=== PATIENT | female | born 2000 | race Hispanic/Latino ===

== ENCOUNTER 2020-09-04 10:29 | Outpatient (CLI) | payer MEDICAID, SELFPAY ==
--- NOTE | ~2020-09-04 | US_ITS ---
EXAMINATION: US OB follow up DATE: 09/04/2020 11:07 INDICATION: Routine care at the transition from second to third trimester of . TECHNIQUE: Real-time ultrasound of the pelvis was performed. The interpreting radiologist was not pre sent for the study. COMPARISON: None. FINDINGS: There is a single living fetus in vertex presentation. The placenta is anterior. heart rate is 150 beats per minute (bpm). The amniotic fluid index is 12.7 cm, which is normal (5th%-95%: 9.7-22. 3 cm at 26 weeks estimated gestational age). The following biometric data were obtained: BPD: 6.2 cm -> 25 weeks 1 days Head circumference: 24.0 cm -> 26 weeks 0 days Abdominal circumference: 21.2 cm -> 25 weeks 5 days Femur length: 4.6 cm -> 25 weeks 1 days These measurements are concordant. Head circumference to abdominal circumference ratio: 1.13 (normal range 1.04-1.22). Estimated weight: 818 g (+/-) 123 g. or 1 lbs. 13 oz. (+/-) 4 oz. IMPRESSION: 1. Single living fetus in vertex presentation with heart rate of 150 bpm. 2. Gestational age by ultrasound of 25 weeks 4 day(s) +/- 1 week(s) 5 day(s) with ultrasound estimate d date of delivery (PEDRO) of 12/14/2020. Estimated weight is 8th percentile by Hadlock criteria w hen 12/07/2020 is used as the PEDRO. Please correlate with clinical information or earlier ultrasounds fo r most accurate PEDRO. 3. Normal amniotic fluid index of 12.7 cm. Reviewed, dictated and finalized at location A. [employer] MECHANIC IMPRESSION: 1. Single living fetus in vertex presentation with heart rate of 150 bpm. 2. Gestational age by ultrasound of 25 weeks 4 day(s) +/- 1 week(s) 5 day(s) wi th ultrasound estimated date of delivery (PEDRO) of 12/14/2020. Estimated we ight is 8th percentile by Hadlock criteria when 12/07/2020 is used as the PEDRO. Pl ease correlate with clinical information or earlier ultrasounds for most accura te PEDRO. 3. Normal amniotic fluid index of 12.7 cm.
== END 2020-09-04 10:30 | disposition home or self-care (01) ==
PROVIDERS: Visit Provider Physician Assistant
DX: Z34.92 Encounter for supervision of normal pregnancy, unspecified, second trimester (principal); Z3A.25 25 weeks gestation of pregnancy
CPT/HCPCS: 76816

== ENCOUNTER 2020-11-19 16:19 | Outpatient (CLI) | payer OTHER, SELFPAY ==
--- NOTE | ~2020-11-19 | US_ITS ---
EXAMINATION: US OB follow up DATE: 11/19/2020 17:16 INDICATION: Supervision of normal third trimester TECHNIQUE: Real-time ultrasound of the pelvis was performed. The interpreting radiologist was not pre sent for the study. COMPARISON: None. FINDINGS: There is a single living fetus in vertex presentation. The placenta is anterior. card iac activity and movement are noted. heart rate is 123 beats per minute (bpm). The amniot ic fluid index is subjectively normal. The following biometric data were obtained: Biparietal diameter (BPD): 8.7 cm; head circumference (HC): 33.0 cm; abdominal circumference (AC): 31 .7 cm; femur length (FL): 7.3 cm. These measurements are concordant. Estimated weight is 2891 g +/- 433 g, which correlates with the 28th percentile when 12/07/2020 i s used as estimated date of delivery. As single measurements, these parameters are each equal to the following estimated gestational ages w ith ranges of +/- 2 standard deviations: BPD: 35 weeks 1 days +/- 3 weeks 1 days. HC: 37 weeks 5 days +/- 2 weeks 5 days. AC: 35 weeks 4 days +/- 3 weeks 0 days. FL: 37 weeks 3 days +/- 3 weeks 1 days. estimated gestational age based solely on measurements from this exam is 36 weeks 3 days +/- 2 weeks 4 days. IMPRESSION: 1. Single living fetus in vertex presentation. 2. Estimated weight is 2891 g +/- 433 g, which correlates with the 28th percentile when is used as estimated date of delivery. Reviewed, dictated and finalized at location A. NT SERVICES ASSISTANT IMPRESSION: 1. Single living fetus in vertex presentation. 2. Estimated weight is 2891 g +/- 433 g, which correlates with the 28th p ercentile when 12/07/2020 is used as estimated date of delivery.
== END 2020-11-19 16:20 | disposition home or self-care (01) ==
LOC: ANHIMG 16:22
PROVIDERS: Visit Provider Physician Assistant
DX: Z34.93 Encounter for supervision of normal pregnancy, unspecified, third trimester (principal)
CPT/HCPCS: 76816

== ENCOUNTER 2020-11-21 15:29 | Outpatient (CLI) | payer OTHER, SELFPAY ==
--- NOTE | 2020-11-21 17:07 | PC.NURSE ---
Pt presents to L&D thinking her water had broke at 0600 this morning. NST reactive. SVE unchanged at 1.5-2 cm since last exam in Dr. Alanis's office on 11/20/20. Pt denies pain and bleeding. ROM plus is negative.
== END 2020-11-21 15:30 | disposition home or self-care (01) ==
PROVIDERS: PCP Obstetrics & Gynecology; Visit Provider Obstetrics & Gynecology
DX: O41.8X90 Other specified disorders of amniotic fluid and membranes, unspecified trimester, not applicable or unspecified (principal); Z3A.00 Weeks of gestation of pregnancy not specified
CPT/HCPCS: 84112

== ENCOUNTER 2020-11-30 03:40 | Observation (INO) | payer OTHER, SELFPAY ==
[2020-11-30] VITALS (7 sets, daily range): BP systolic 108–116; BP diastolic 61–76; PULSE 81–93; BMI 21.2
--- NOTE | 2020-11-30 03:40 | OBADM ---
This patient, Donna Jaime, admitted to the OB room Labor/Delivery/Recovery 106 for observation. Patient/family oriented to hospital policies and general routines including ID bracelet, bed and alarms, visiting hours, pain management, procedures, bathroom and other care routines, personal items, smoking policy, room service/diet, and visiting hours. Patient/Family are encouraged to report perceived risks to care and to ask questions if they do not understand what they are told or what they should do.
--- NOTE | 2020-11-30 03:45 | PC.NURSE ---
Pt states she has been having contractions for past hour. Rates as 8 on pain scale. Pt speaks Mauritanian as primary language however states she she understands and speaks Mozambican too and will help if she does not understand. Declines medical interpreter.
--- NOTE | 2020-11-30 06:20 | PC.NURSE ---
Addendum entered by Aaron Shields RN 11/30/20 06:24: TIME NOTE 0521 Original Note: Contacted Dr. Barbosa with SVE and pt sleeping since shortly after arrival. Will discharge home. Order received. Pt had variable decel at conversation with Dr. Barbosa. Will observe for reactive tracing prior to discharge. .
--- NOTE | 2020-12-01 09:51 | PM.OBTRLD ---
OB - Triage/Final Diagnosis Visit Information Comments/Additional reasons for admission: I have assessed the risk for this patient, Donna Jaime, and determined that she would benefit from observation care. Final Diagnosis (1) False labor: Code(s): O47.9 - False labor, unspecified Status: Acute
--- NOTE | 2020-12-05 03:59 | PM.IMHP ---
H&P: HPI History of Present Illness Date/Time: 12/05/20 03:59 Chief Complaint: elective induction of labor in Term Narrative: Donna Jaime is a 20 year old female primigravida presenting for IOL at 39w5d gestation. 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 +FM. Is following with MFM for SGA fetus. she understands her condition procedure and risks involved she understands the maternal and indications for delivery with risk involved including but not limited to bleeding infection injury to bladder bowel baby pelvic vessels DVT pneumonia wound infection endometrioid is UTI the risk of anesthesia and she agrees to proceed. GBS positive antibiotics will be given Pitocin method of induction. Plans on using an epidural, having a girl named Aennhoa and bottle /breast-feeding. Review of Systems Review of Systems: All systems reviewed & are unremarkable except as noted in HPI and below Constitutional: Constitutional: Reports no additional constitutional complaints Eyes: Eyes: Reports no additional eye complaints ENT: Reports system reviewed and no additional complaints, except as documented Cardiovascular: Cardiovascular: Reports no additional cardiovascular complaints Respiratory: Respiratory: Reports no additional respiratory complaints Gastrointestinal: Gastrointestinal: Reports no additional gastrointestinal complaints Genitourinary: Genitourinary: Reports no additional female genitourinary complaints Musculoskeletal: Musculoskeletal: Reports no additional musculoskeletal complaints Integumentary/Breasts: Skin/Breast: Reports system reviewed and no additional complaints, except as docu Neurologic: Reports system reviewed and no additional complaints, except as documented Psychiatric: Psychiatric: Reports no additional psychiatric complaints Endocrine: Endocrine: Reports no additional endocrine complaints Allergic/Immunologic: Allergic/Immunologic: Reports no additional allergic/immunologic complaints [facility] Past Medical History Medical History (Updated 12/05/20 @ 04:18 by David Alanis MD) Anemia affecting Bacterial vaginosis GBS carrier 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 Maternal varicella, non-immune SGA (small for gestational age), , affecting care of mother, antepartum Subclinical hypothyroidism Term Family History Family History Grandparent Diabetes mellitus Social History Social History (Updated 12/05/20 @ 04:12 by David Alanis MD) Smoking status: Never smoker Alcohol intake: never Substance use: never Substance use type: does not use Living arrangements: with family Occupation/Education: unemployed Gender identity (if verbalized by the patient): Female Sexual Orientation (if Verbalized by the Patient): Straight or Heterosexual Spiritual care concerns: No Agree to blood products: Yes Meds Home Medications and Allergies Home Medications Medication Instructions Recorded Confirmed Type prenat.vits,kvng,uiu-rtsi-hudui 1 tablet PO DAILY 11/12/20 11/30/20 History levothyroxine 50 mcg PO DAILY 11/30/20 11/30/20 History Allergies Allergy/AdvReac Type Severity Reaction Status Date / Time No Known Allergies Allergy Verified 11/21/20 17:04 Exam Const: General: cooperative, healthy appearing, comfortable, no acute distress, well developed, alert, awake and Physically active Nutritional Appearance: average body habitus and well nourished Orientation/consciousness: patient oriented x3 Limitations: no limitations HENMT: Head: normal to inspection Ears: hearing grossly normal bilaterally General nose exam: Normal external nose present Face and sinus: normal facial exam Mouth: Yes Normal oral and palatal mucosa present and Yes moist mucous membranes Teeth and gingiva: dentition normal Throat: p
--- NOTE | 2020-12-05 04:04 | P.HP_ITS ---
Obstetrics - Admit Note Admission Note: record reviewed. No pertinent additions to the history and/or any subsequent changes in the physical findings that are not consistent with the expected course of the were found. Additions to the history and/or subsequent changes in the physical findings follow. None. Donna Jaime is a 20 year old female primigravida presenting for IOL at 39w5d gestation. 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 +FM. Is following with [facility] for SGA fetus. she understands her condition procedure and risks involved she understands the maternal and indications for delivery with risk involved including but not limited to bleeding infection injury to bladder bowel baby pelvic vessels DVT pneumonia wound infection endometrioid is UTI the risk of anesthesia and she agrees to proceed. GBS positive antibiotics will be given Pitocin method of induction. Plans on using an epidural, having a girl named Vira and bottle /breast-feeding.
--- NOTE | 2020-12-05 04:04 | WPDHPUPDATE1 ---
History and Physical Update Update Date/Time: 12/05/20 04:04 History and Physical has been reviewed, including an updated exam of the patient. There are NO changes in the patient's condition. Risks, benefits, and alternatives have been discussed and questions answered. Patient agrees to proceed with procedure. Donna Jaime is a 20 year old female primigravida presenting for IOL at 39w5d gestation. 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 +FM. Is following with M for SGA fetus. she understands her condition procedure and risks involved she understands the maternal and indications for delivery with risk involved including but not limited to bleeding infection injury to bladder bowel baby pelvic vessels DVT pneumonia wound infection endometrioid is UTI the risk of anesthesia and she agrees to proceed. GBS positive antibiotics will be given Pitocin method of induction. Plans on using an epidural, having a girl named Vira and bottle /breast-feeding.
== END 2020-11-30 07:12 | disposition home or self-care (01) ==
PROVIDERS: Admitting Provider Obstetrics & Gynecology; Visit Provider Obstetrics & Gynecology
DX: O47.03 False labor before 37 completed weeks of gestation, third trimester (principal); Z3A.39 39 weeks gestation of pregnancy
CPT/HCPCS: G0378; G0379

== ENCOUNTER 2020-12-05 07:11 | Inpatient (IN) | payer OTHER, SELFPAY ==
[2020-12-05] VITALS (194 sets, daily range): BP systolic 70–135; BP diastolic 42–104; PULSE 69–149; RESP 16; TEMP 36.5–36.9; O2SAT 94–100; BMI 25.2
--- NOTE | 2020-12-05 07:11 | LDADM ---
This patient, Donna Jaime, was admitted to Labor/Delivery/Recovery 104 on 12/05/20 at 07:11. Plans for labor, pain management and were discussed with patient. Patient/family oriented to hospital policies and general routines including ID bracelet, bed and alarms, visiting hours, pain management, procedures, bathroom and other care routines, personal items, smoking policy, room service/diet and guest tray routines, security routines, and visiting hours. Patient/Family are encouraged to report perceived risks to care and to ask questions if they do not understand what they are told or what they should do. See OBIX for further documentation.
[2020-12-05 07:57] LABS: Basophils Percent Auto 0.3 % (0.2-1.2); Eosinophils Percent Auto 0.4 % (0-4.4); Hematocrit 33.1 % (37.0-47.0); Hemoglobin 10.9 g/dL (12.0-15.0); Immature Granulocyte Absolute 0.04 K/mm3 (0.00-0.031); Immature Granulocyte Percent A 0.4 % (0-0.5); Lymphocytes Absolute Auto 3.25 K/mm3 (0.9-3.2); Lymphocytes Percent Auto 33.5 % (18.3-44.2); Mean Corpuscular HGB Conc 32.9 g/dl (32-36); Mean Corpuscular Hemoglobin 27.2 pg (26-34); Mean Corpuscular Volume 82.5 fl (80-100); Mean Platelet Volume 10.2 fl (7.4-10.4); Monocytes Absolute Auto 0.7 K/mm3 (0.1-0.6); Monocytes Percent Auto 6.7 % (2.6-8.5); Neutrophils Absolute Auto 5.7 K/mm3 (1.3-6.7); Neutrophils Percent Auto 58.7 % (45.5-73.1); Platelet Count Result 395 k/mm3 (150-375); Red Blood Count 4.01 M/mm3 (4.2-5.4); Red Cell Distribution Width 14.7 % (11.5-14.5); White Blood Count 9.7 K/mm3 (4.5-10.0)
[2020-12-05] MEDS: AMPICILLIN 2 GM/NS 100 ML 2 GM/100 ML BAG IVPB (08:03)
[2020-12-05] MEDS: LACTATED RINGERS 1,000 ML 125 ML IV CONT ×4 (08:04→16:36)
[2020-12-05] MEDS: OXYTOCIN 30 UNITS/NS 500 ML 30 UNITS/500 ML BAG IV CONT (08:04)
[2020-12-05 08:14] LABS: Amphetamine Screen Urine Negative (Negative); Barbiturate Screen Urine Negative (Negative); Benzodiazepines Screen Urine Negative (Negative); Cannabinoid Screen Urine Negative (Negative); Cocaine Screen Urine Negative (Negative); Methadone Screen Urine Negative (Negative); Opiate Screen Urine Negative (Negative); Phencyclidine Screen Urine Negative (Negative)
[2020-12-05] MEDS: AMPICILLIN 1 GM/NS 50 ML 1 GM/50 ML BAG IVPB ×2 (12:57→16:36)
[2020-12-05] MEDS: SODIUM CHLORIDE 0.9% IV 300 ML 600 ML I-UTERINE (12:59)
--- NOTE | 2020-12-05 14:48 | PM.OBPNLAB ---
Pain Control Date/time seen: 12/05/20 14:48 Pain control: tolerating well and epidural Comments: arom 1018 Pelvic Exam Dilation (cm): 4 Effacement (%): 100 station: -2 Amniotic membrane status: Ruptured Contractions Monitor mode: External Contraction frequency: 4 Contraction duration: 30 Contraction pattern: Regular Contraction phase: Contraction Status status: Category l Assessment and Plan Pitocin rate (mU/min): 2 Assessment: active labor and induction ongoing Plan: continuous present management
--- NOTE | 2020-12-05 19:14 | PM.OBPRVD ---
OB - Delivery Note Procedure Delivery date: 12/05/20 Procedure: Normal spontaneous vertex vaginal delivery a viable female infant and placenta Repair of first-degree perineal laceration Induction method: per pitocin protocol Delivery monitor: external FHT and internal uterine Route of delivery: Episiotomy description: None Laceration Description: Perineal - 1st Degree Delivery repair: vicryl (2-0) Anesthesia type: Epidural Disposition: floor Complications: None Narrative: Patient pushed in the 2nd stage of labor under epidural anesthesia resulting in a normal spontaneous vertex vaginal delivery a viable female infant over intact perineum anterior should shoulder delivered without difficulty 's posterior shoulder delivered and the infant was placed on the maternal abdomen cord was clamped and cut the nose and throat were bulb suction with spontaneous respirations and cry no gross abnormalities on the exam. Placenta cord gases and cord blood was then obtained and the placenta was delivered intact with a three-vessel cord and sent to pathology. The uterus contracted well with Pitocin given intravenously the cervix and rectum were checked there was no sponges left in the vagina no fistula sphincters intact the first-degree perineal laceration was repaired with 2 0 Vicryl suture in a running fashion hemostasis excellent mom and baby in stable condition in birthing [address] Baby Date of : 12/05/20 Time of : 18:55 Weeks of gestation at delivery: 40 gender: Female Weight (pounds): 6 Weight (ounces): 1 presentation: vertex position: Left Occiput Anterior Placenta delivery description: Spontaneous and Normal Configuration cord vessel description: 3 Vessels score one minute: 8 score five minutes: 9 Narrative: Normal spontaneous respiration with bulb suction normal transition with stimulation no gross abnormalities on the exam taken to the nursery in stable condition
[2020-12-05] MEDS: OXYTOCIN 30 UNITS/NS 500 ML 30 UNITS/500 ML BAG 125 UNITS IV CONT (19:39)
[2020-12-05] MEDS: WITCH HAZEL 40 PADS 1 PAD TOPICAL (21:40)
[2020-12-05] MEDS: BENZOCAINE 20% AER SPR (*SP) 56 GM CAN 1 SPRAY TOPICAL (21:40)
[2020-12-06] MEDS: IBUPROFEN 600 MG TABLET PO ×2 (05:30→19:29)
[2020-12-06 05:52] LABS: Hematocrit 28.7 % (37.0-47.0); Hemoglobin 9.1 g/dL (12.0-15.0)
[2020-12-06] MEDS: DOCUSATE SODIUM 100 MG CAPSULE PO ×2 (07:11→19:28)
[2020-12-06] MEDS: LEVOTHYROXINE SODIUM 75 MCG TABLET PO (07:11)
[2020-12-06] MEDS: MULTIVIT/MIN/PREN/FOL AC/IRON TABLET 1 TAB PO (07:11)
[2020-12-06] MEDS: POLYSACCHARIDE IRON COMPLEX 150 MG CAPSULE PO ×2 (07:11→19:27)
[2020-12-06 07:15] VITALS: BP 115/77; PULSE 105; RESP 16; TEMP 36.9
--- NOTE | 2020-12-06 08:40 | WPDANLDPN2 ---
Anes-Prog Note L&D Date/Time: 12/06/20 08:40 Comfortable throughout: labor Neuraxial method: epidural Epidural/Spinal procedure site: clean & non-tender Neuro status: Neuro function grossly intact. Cardiovascular status: normal Respiratory status: normal Airway patency: baseline Mental status: baseline Post-Op hydration status: normal Vital Signs: Last Vital Signs Temp 36.9 C 12/05/20 22:00 Pulse 108 H 12/05/20 22:00 Resp 16 12/05/20 22:00 BP 123/75 12/05/20 22:00 Pulse Ox 100 12/05/20 19:08 Pain score (VAS): no complaints I/O: Intake & Output 12/05/20 12/06/20 12/06/20 23:59 07:59 15:59 Intake Total 1150 Output Total 541 Balance 609 Post-procedural complaints: none Patient feedback: Patient satisfied with anesthetic care.
--- NOTE | 2020-12-06 12:08 | PM.OBPNVD ---
OB - PN: Subj Subjective Date/time seen: 12/06/20 12:08 Patient comments: no complaints, pain well controlled, tolerating diet and flatus present [place] baby status: doing well [place] feeding status: exclusively breast feeding OB - PN: Obj Data Labs CBC & Chem 7: 12/06/20 05:21 Labs: Laboratory Results - last 24 hr 12/06/20 05:21 Hgb 9.1 L Hct 28.7 L OB - PN A/P Plan day: 1 Plan: routine care, discharge home and follow up 6 weeks Time Spent With Patient Time: Total time spent is greater than 50% in coordination of care (as documented) at patient's floor/unit and/or counseling patient: Time with patient: less than 15 minutes Review of Systems Review of Systems: All systems reviewed & are unremarkable except as noted in HPI and below Exam Const: General: cooperative, healthy appearing, comfortable, no acute distress, well developed, alert, awake and Physically active Nutritional Appearance: average body habitus Orientation/consciousness: patient oriented x3 Limitations: no limitations HENMT: Head: normal to inspection Eyes: General: appearance normal, both eyes and all related structures Neck: Neck: normal visual inspection and full ROM Chest: Chest palpation & inspection: normal inspection of the chest Resp: Effort & Inspection: normal respiratory effort Cardio: Rate: regular rate Rhythm: regular rhythm GI: Inspection: normal to inspection : External Female Exam: normal external appearance Back/Spine/Pelvis: Back: no CVA tenderness Skin: General skin exam: normal color Neuro: General: patient oriented x3, gait normal, tone normal and moves all extremities Extrem: General: normal to inspection, full ROM and no calf tenderness Psych: Appearance: grossly normal Mental Status: mental status grossly normal Speech and movement: Normal speech and movement present Affect: normal affect Attitude: cooperative
[2020-12-06 22:18] VITALS: BP 119/77; RESP 16; TEMP 36.6; O2SAT 100
--- NOTE | 2020-12-06 22:29 | PC.NURSE ---
12/06/2020 at 2100. Patient viewed the filipino version of the discharge video Mother & Baby Care, The First Two Weeks . Patient was given the opportunity and encouraged to ask questions. Patient verbalized understanding of information shared and has been given the mother/baby guide for home reference.
[2020-12-07 06:40] VITALS: BP 120/73; PULSE 78; RESP 18; TEMP 36.3
[2020-12-07] MEDS: DOCUSATE SODIUM 100 MG CAPSULE PO (08:50)
[2020-12-07] MEDS: IBUPROFEN 600 MG TABLET PO (08:50)
[2020-12-07] MEDS: POLYSACCHARIDE IRON COMPLEX 150 MG CAPSULE PO (08:50)
[2020-12-07] MEDS: LANOLIN (LANSINOH) 7.5 GM CREAM 1 APPLIC TOPICAL (08:50)
[2020-12-07] MEDS: MULTIVIT/MIN/PREN/FOL AC/IRON TABLET 1 TAB PO (08:50)
[2020-12-07] MEDS: TETANUS,DIPHTHERIA,AC PERTUSSIS ADULT (0.5 ML) BOOSTRIX IM (08:50)
[2020-12-08 09:11] LABS: Rapid Plasma Reagin Non-Reactive (NonReactive)
[2020-12-09 11:47] VITALS: BP 114/72; PULSE 88; RESP 16; TEMP 36.8; O2SAT 100
--- NOTE | 2020-12-13 08:36 | PM.OBDSVD ---
DS: Admitting Diagnosis Admitting Diagnosis Admitting Diagnosis: Term Elective induction of labor SGA MTHFR SGA GBS carrier Subclinical hypothyroidism Anemia Varicella nonimmune DS: Discharge Diagnosis Discharge Diagnosis (1) Term delivered: Code(s): O80 - Encounter for full-term uncomplicated delivery Status: Acute (2) Encounter for elective induction of labor: Code(s): Z34.90 - Encounter for supervision of normal , unspecified, unspecified trimester Status: Acute (3) Anemia affecting : Code(s): O99.019 - Anemia complicating , unspecified trimester Status: Acute (4) Maternal varicella, non-immune: Code(s): O09.899 - Supervision of other high risk pregnancies, unspecified trimester; Z28.3 - Underimmunization status Status: Acute (5) Subclinical hypothyroidism: Code(s): E03.9 - Hypothyroidism, unspecified Status: Acute (6) GBS carrier: Code(s): Z22.330 - Carrier of Group B streptococcus Status: Acute (7) SGA (small for gestational age), , affecting care of mother, antepartum: Code(s): O36.5990 - Maternal care for other known or suspected poor growth, unspecified trimester, not applicable or unspecified Status: Acute (8) Heterozygous MTHFR mutation [id number]: Code(s): E72.12 - Methylenetetrahydrofolate reductase deficiency Status: Acute OB - DS: Summary Hospital Course Time spent discussing smoking cessation with patient: 3 to 10 minutes OB Procedures : Ultrasound OB Procedures Intrapartum: Spontaneous Vag Delivery and GBS prophylaxis OB Procedures: : None Peripartum Data Infant Delivery Method: Natural Vaginal Laceration Description: Perineal - 1st Degree complications: none 1: Gender: Female Disposition of : home Status at Discharge Functional status at discharge: independent ambulation Overall status at discharge: patient is back to baseline Time Spent with Patient Time attestation: Total time spent providing and/or coordinating discharge services: Time spent: Less than 30 minutes Exam Const: General: cooperative, healthy appearing, comfortable, no acute distress, well developed, alert, awake and Physically active Nutritional Appearance: average body habitus Orientation/consciousness: patient oriented x3 Limitations: no limitations HENMT: Head: normal to inspection Eyes: General: appearance normal, both eyes and all related structures Neck: Neck: normal visual inspection Chest: Chest palpation & inspection: normal inspection of the chest Resp: Effort & Inspection: normal respiratory effort Cardio: Rate: regular rate Rhythm: regular rhythm GI: Inspection: normal to inspection : External Female Exam: normal external appearance Back/Spine/Pelvis: Back: no CVA tenderness Skin: General skin exam: normal color Neuro: General: patient oriented x3, gait normal, tone normal, moves all extremities and Normal light touch and pain sensation Extrem: General: normal to inspection, full ROM and no calf tenderness Psych: Appearance: grossly normal Mental Status: mental status grossly normal Speech and movement: Normal speech and movement present Affect: normal affect Attitude: cooperative Thought process: Normal thought process present Thought content: Yes Normal thought content present Insight: Good insight present (Psych) Judgement: Good judgement present (Psych) DS: Data Data Completed and Pending Completed studies during hospitalization: Pending at discharge 12/05/20 18:57 Surgical [PTH] Routine Discharge Plan Discharge Attending physician on discharge: David Alanis Discharging Clinician: David Alanis Anticipated Discharge Date/Time: 12/07/20 12:10 Patient Disposition: Home, Self-Care Activity: may shower, no straining, no driving and may drive af
== END 2020-12-07 10:25 | disposition home or self-care (01) | DRG 560 ==
LOC: ANHLDR 07:17 → ANHOB2 21:55
PROVIDERS: Admitting Provider Obstetrics & Gynecology; Visit Provider Obstetrics & Gynecology
DX: O99.824 Streptococcus B carrier state complicating childbirth (principal); Z37.0 Single live birth; Z3A.40 40 weeks gestation of pregnancy; Z23 Encounter for immunization; O70.0 First degree perineal laceration during delivery; O36.8330 Maternal care for abnormalities of the fetal heart rate or rhythm, third trimester, not applicable or unspecified
CPT/HCPCS: 36415; 80307; 85014; 85018; 85025; 86592; 86850; 86900; 86901; 88307; 90471; 90653; 90715; A9270; G0008; J0290; J2590; J2795; J7030; J7120

== ENCOUNTER 2021-05-07 10:21 | Outpatient (CLI) | payer OTHER, SELFPAY ==
--- NOTE | ~2021-05-07 | US_ITS ---
EXAMINATION: US OB <= 14 weeks fetus EXAM DATE: 05/07/2021 11:00 INDICATION: Encounter for supervision of normal . 1st trimester. TECHNIQUE: Pelvic obstetrical transabdominal sonogram was performed by a technologist. There are mu ltiple grayscale and Doppler images available for interpretation. FINDINGS: Uterus measures 12.7 x 8.9 x 7.0 cm. There is intrauterine gestation sac. pole with heart rate confirmed at 157 beats per minute. The 5.5 cm crown-rump length corresponds to estimated gestational age by ultrasound of 12 weeks 1 day, estimated date of confinement 11/18/2021. Yolk sac is identified. There is no sonographic evidence of subchorionic/retroplacental hemorrhage. Placenta is posteriorly located. Ovaries were not identified. IMPRESSION: Early live intrauterine gestation, age by ultrasound of 12 weeks 1 day. Reviewed, dictated and finalized at location B.
== END 2021-05-07 10:22 | disposition home or self-care (01) ==
PROVIDERS: PCP Physician Assistant; Visit Provider Physician Assistant
DX: Z36.89 Encounter for other specified antenatal screening (principal); Z3A.12 12 weeks gestation of pregnancy
CPT/HCPCS: 76801

== ENCOUNTER 2021-06-05 20:48 | Emergency (ER) | payer OTHER, SELFPAY ==
[2021-06-05 20:51] VITALS: BP 127/72; PULSE 100; RESP 16; TEMP 36.6; O2SAT 100
--- NOTE | 2021-06-05 21:13 | ED.URI ---
HPI - URI/Sore Throat General Chief Complaint: Upper Respiratory Infection Stated Complaint: vomiting, 16 weeks pg Time Seen by Provider: 06/05/21 21:12 History of Present Illness HPI Narrative: 21 yo female at 16 weeks gestation presents to the ED c/o fever. She reports subjective fever at home. No measured fever. This is assisted with fatigue, aches, nasal congestion. No cough, SOB, sore throat, dysuria, hematuria, vaginal bleeding, discharge, abdominal pain. No sick contacts. She has not had the COVID-19 vaccination. 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 Maternal varicella, non-immune SGA (small for gestational age), , affecting care of mother, antepartum Subclinical hypothyroidism Term Family History Family History Grandparent Diabetes mellitus Social History Social History Smoking status: Never smoker Alcohol intake: never Substance use: never Substance use type: does not use Gender identity (if verbalized by the patient): Female Spiritual care concerns: No Agree to blood products: Yes Exam Const: General: healthy appearing, no acute distress and alert Orientation/consciousness: patient oriented x3 HENMT: Head: normal to inspection Throat: posterior oropharynx normal Neck: Neck: normal visual inspection and no lymphadenopathy Resp: Effort & Inspection: normal respiratory effort Auscultation: clear to auscultation bilaterally, no rales, no rhonchi and no wheezes Cardio: Jugular venous distension: no JVD Rate: regular rate Rhythm: regular rhythm Heart sounds: no murmurs GI: Inspection: non-distended GI Palp: Yes Soft to palpation and No Tenderness to palpation present (GI) Skin: General skin exam: normal color Neuro: General: patient oriented x3 and moves all extremities Speech: normal speech Extrem: General: normal to inspection and no edema Psych: Appearance: well kempt Affect: normal affect Course Vital Signs Vital signs: Vital Signs Temperature 36.6 C 06/05/21 20:51 Pulse Rate 100 06/05/21 20:51 Respiratory Rate 16 06/05/21 20:51 Blood Pressure 127/72 06/05/21 20:51 Pulse Oximetry 100 06/05/21 20:51 Temperature 37.2 C 06/05/21 22:56 Pulse Rate 94 06/05/21 22:56 Respiratory Rate 20 06/05/21 22:56 Blood Pressure 122/89 06/05/21 22:56 Pulse Oximetry 96 06/05/21 22:56 Procedures Other Procedure Procedure 1: Other Procedure: Bedside US Grossly normal 16 week IUP reassuring movement FHR 166 MDM - URI/Sore Throat MDM Narrative Medical decision making narrative: minimal symptoms. Afebrile here with no confirmed fever at home. US reassuring. will send covid test Medical Records Attestation: I reviewed the patient's medical records. Lab Data Labs: Lab Results 06/05/21 Range/Units 22:13 SARS-CoV-2 RNA (RT-PCR) Pending Discharge Plan Discharge Clinical Impression: Upper respiratory infection, Suspected COVID-19 virus infection Patient Disposition: Home, Self-Care Condition: Stable Instructions: COVID-19 (Coronavirus Disease 2019) (ED) Prescriptions: New acetaminophen 500 mg capsule 1,000 mg PO TID PRN (Reason: fever or pain) Qty: 60 RF: 0 No Action prenat.vits,
[2021-06-05 22:56] VITALS: BP 122/89; PULSE 94; RESP 20; TEMP 37.2; O2SAT 96
[2021-06-06 21:30] LABS: SARS-CoV-2 RNA PCR Positive
== END 2021-06-05 22:57 | disposition home or self-care (01) ==
PROVIDERS: Emergency Provider Emergency Medicine; PCP Physician Assistant
DX: O98.512 Other viral diseases complicating pregnancy, second trimester (principal); U07.1 COVID-19; J06.9 Acute upper respiratory infection, unspecified; Z3A.16 16 weeks gestation of pregnancy; O99.282 Endocrine, nutritional and metabolic diseases complicating pregnancy, second trimester; E03.9 Hypothyroidism, unspecified; E72.12 Methylenetetrahydrofolate reductase deficiency
CPT/HCPCS: 99283; C9803; U0003; U0005

== ENCOUNTER 2021-07-15 10:35 | Outpatient (CLI) | payer OTHER, SELFPAY ==
--- NOTE | ~2021-07-15 | US_ITS ---
US breast BI limited 07/15/2021 11:46 Indication: Palpable bilateral breast lumps Procedure: High-resolution Limited ultrasound of the breasts in the areas of palpable concern. Comparison: No prior studies for comparison. Findings: Right breast: At 11:00, 5 cm from the nipple, there is an oval circumscribed hypoechoic mas s measuring 2.3 x 2.2 x 1.8 cm. There are some lobulated margins.. There is internal vascularity. The re is increased through transmission. Left breast ultrasound: At 6:00, 2 cm from the nipple, there is an oval hypoechoic mass measuring 13 x 11 x 7 mm with heterogeneous internal echotexture. There is posterior acoustic enhancement. No inte rnal vascularity. Impression: 1: Probable benign bilateral breast masses. BI-RADS CATEGORY 3-PROBABLY BENIGN FINDING RECOMMENDATION: Six-month follow-up bilateral breast ultrasound recommended. Reviewed, dictated and finalized at location A. Impression: 1: Probable benign bilateral breast masses. BI-RADS CATEGORY 3-PROBABLY BENIGN FINDING RECOMMENDATION: Six-month follow-up bilateral breast ultrasound recommended.
--- NOTE | ~2021-07-15 | US_ITS ---
EXAMINATION: US OB /maternal detail DATE: 07/15/2021 11:50 INDICATION: Second trimester survey TECHNIQUE: Real-time ultrasound of the pelvis was performed. COMPARISON: None. FINDINGS: There is a single living fetus in vertex presentation. The placenta is posterior. heart rate is 155 beats per minute (bpm). cardiac activity and movement are noted. The amniotic fluid index is subjectively normal. The following anatomy was identified as normal: 4 chamber heart 3 vessel cord cord insertion kidneys urinary bladder stomach spine diaphragm ventricles cisterna magna cerebellum The following biometric data were obtained: Biparietal diameter (BPD): 5.0 cm; head circumference (HC): 18.3 cm; abdominal circumference (AC): 15 .2 cm; femur length (FL): 3.3 cm. These measurements are concordant. Estimated weight is 360 g +/- 54 g, which correlates with the <3rd percentile when 11/18/2021 is used as estimated date of delivery. As single measurements, these parameters are each equal to the following estimated gestational ages w ith ranges of +/- 2 standard deviations: BPD: 21 weeks 1 days +/- 1 weeks 5 days. HC: 20 weeks 5 days +/- 1 weeks 3 days. AC: 20 weeks 3 days +/- 2 weeks 0 days. FL: 20 weeks 4 days +/- 1 weeks 6 days. estimated gestational age based solely on measurements from this exam is 20 weeks 5 days +/- 1 weeks 3 days. IMPRESSION: 1. Single living fetus in vertex presentation. 2. Estimated weight is 360 g +/- 54 g, which correlates with the <3rd percentile when 11/18/2021 is used as estimated date of delivery. Reviewed, dictated and finalized at location A. IMPRESSION: 1. Single living fetus in vertex presentation. 2. Estimated weight is 360 g +/- 54 g, which correlates with the <3rd per centile when 11/18/2021 is used as estimated date of delivery.
== END 2021-07-15 10:36 | disposition home or self-care (01) ==
PROVIDERS: PCP Physician Assistant; Visit Provider Physician Assistant
DX: Z34.92 Encounter for supervision of normal pregnancy, unspecified, second trimester (principal); Z3A.20 20 weeks gestation of pregnancy; N63.25 Unspecified lump in the left breast, overlapping quadrants
CPT/HCPCS: 76642; 76805

== ENCOUNTER 2021-10-02 13:57 | Outpatient (CLI) | payer OTHER, SELFPAY ==
--- NOTE | ~2021-10-02 | US_ITS ---
EXAMINATION: US OB follow up DATE: 10/02/2021 14:38 INDICATION: Supervision of normal . Third trimester. TECHNIQUE: Real-time ultrasound of the pelvis was performed. COMPARISON: Ultrasound 07/15/2021, 05/07/2021 FINDINGS: There is a single living fetus in vertex presentation. The placenta is on the right, 3.2 cm from the cervix. heart rate is 161 beats per minute (bpm). The amniotic fluid index is 15.0, which is n ormal. The following biometric data were obtained: Biparietal diameter (BPD): 8.3 cm; head circumference (HC): 29.8 cm; abdominal circumference (AC): 27 .9 cm; femur length (FL): 5.8 cm. These measurements are concordant. Estimated weight is 1829 g +/- 274 g, which correlates with 8th percentile when 11/18/21 is used as estimated date of delivery. As single measurements, these parameters are each equal to the following estimated gestational ages: BPD: 33 weeks 2 days. HC: 33 weeks 0 days. AC: 32 weeks 0 days. FL: 30 weeks 4 days. estimated gestational age based solely on measurements from this exam is 32 weeks 2 days +/- 2 weeks 2 days. IMPRESSION: 1. Single living fetus in vertex presentation. 2. Small for gestational age. Estimated weight is 1829 g +/- 274 g, which correlates with the 8 th percentile when 11/18/21 is used as estimated date of delivery. This date was set by ultrasound on 05/07/2021. Reviewed, dictated and finalized at location A. ING INSPECTOR IMPRESSION: 1. Single living fetus in vertex presentation. 2. Small for gestational age. Estimated weight is 1829 g +/- 274 g, which correlates with the 8th percentile when 11/18/21 is used as estimated date of d elivery. This date was set by ultrasound on 05/07/2021.
== END 2021-10-02 13:58 | disposition home or self-care (01) ==
PROVIDERS: PCP Physician Assistant; Visit Provider Obstetrics & Gynecology
DX: Z34.93 Encounter for supervision of normal pregnancy, unspecified, third trimester (principal); Z3A.32 32 weeks gestation of pregnancy
CPT/HCPCS: 76816

== ENCOUNTER 2022-07-20 20:16 | Emergency (ER) | payer OTHER, SELFPAY ==
[2022-07-20 20:23] VITALS: BP 125/82; PULSE 102; RESP 16; TEMP 36.9; O2SAT 100
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
== END 2022-07-20 22:58 | disposition home or self-care (01) ==
PROVIDERS: Emergency Provider General Practice
DX: L03.114 Cellulitis of left upper limb (principal); T22.222A Burn of second degree of left elbow, initial encounter; T31.0 Burns involving less than 10% of body surface; X15.0XXA Contact with hot stove (kitchen), initial encounter
CPT/HCPCS: 99283

== ENCOUNTER 2022-12-14 09:42 | Observation (INO) | payer OTHER, SELFPAY ==
[2022-12-14] VITALS (8 sets, daily range): BP systolic 102–109; BP diastolic 56–79; PULSE 73–88; TEMP 36.5
[2022-12-14 11:26] LABS: Appearance Urine Cloudy (Clear); Bilirubin Urine Negative (Negative); Blood Urine 1+ (Negative); Color Urine Yellow (Yellow); Glucose Urine UA Negative (Negative); Ketones Urine Negative (Negative); Leukocyte Esterase Ur 3+ LEU/UL (Negative); Nitrate Urine Positive (Negative); Protein Urine Trace mg/dL (Negative); Specific Grav Ur <= 1.005 (1.001-1.035); pH Urine 6.5 (5.0-9.0)
[2022-12-14 11:30] LABS: Bacteria Urine Trace /hpf; Mucus Urine Rare /lpf; Squamous Epithelial Cell Urine Few /hpf (Few); WBC Clumps Urine Present /HPF; WBC Urine >75 /hpf
[2022-12-14 11:31] LABS: Add Urine Microscopic? YES
--- NOTE | 2022-12-18 11:39 | P.PNOB_ITS ---
OB - Triage/Final Diagnosis Visit Information Reason for evaluation: other ( abdominal pain) Comments/Additional reasons for admission: I have assessed the risk for this patient, Donna Singer, and determined that she would benefit from observation care. Evaluation Laboratory results: Laboratory Tests 12/14/22 11:11 Urine Color Yellow Urine Appearance Cloudy H Urine pH 6.5 Ur Specific [place] <= 1.005 Urine Protein Trace Urine Glucose (UA) Negative Urine Ketones Negative Ur Blood (Man) 1+ H Urine Nitrate Positive H Urine Bilirubin Negative Urine Urobilinogen 1.0 Leukocyte Esterase Rfl 3+ H Urine RBC 6-10 H Urine WBC >75 H Urine WBC Clumps Present H Ur Squamous Epith Cells Few Urine Bacteria Trace Urine Mucus Rare
== END 2022-12-14 12:18 | disposition home or self-care (01) ==
PROVIDERS: Admitting Provider Obstetrics & Gynecology Gynecology; PCP Physician Assistant; Visit Provider Obstetrics & Gynecology Gynecology
DX: O26.899 Other specified pregnancy related conditions, unspecified trimester (principal); R10.9 Unspecified abdominal pain; Z3A.00 Weeks of gestation of pregnancy not specified
CPT/HCPCS: 81001; 87077; 87086; 87186; G0378; G0379